=== PATIENT | male | born 2000 | race African-American/Black ===

== ENCOUNTER 2018-11-06 17:23 | Emergency (ER) | payer OTHER ==
[~2018-11-06] VITALS: Ht 170.2 cm; Wt 61.2 kg
[~2018-11-06 17:23] MED LIST: CHILDREN'S100 MG/58 PO; CHILDREN'S160 MG/56 ORAL; NKM; TAMIFLU75 MG ORAL
[2018-11-06] MEDS ORDERED: NKM (17:45)
[2018-11-06 17:50] VITALS: BP 121/69
--- NOTE | 2018-11-06 18:37 | Emergency Room Report ---
History of Present Illness General Chief Complaint: Chest Pain Source: Patient Present Illness HPI 18 YO Male presents to the emergency department complaining of 7 out of 10 severity left-sided chest pain that is burning in nature and states that he is having a symptoms primarily at nighttime. Patient also reports chronic cough x1 month with intermittent sputum production. Patient denies nausea, vomiting, fevers, chills, history of asthma, smoking or cardiac history. Patient denies history of acid reflux. Patient does report halitosis. Eyes palpitations, syncope, altered mental status or loss of consciousness. Reports intermittent numbness and tingling on the left side of his chest as well denies gross motor weakness or persistent paresthesias. Denies sudden onset of headache. Mother reports that pt. has had these symptoms in the past and was worked up for them. She states pt. develops anxiety when experiencing his symptoms. Allergies: Coded Allergies: No Known Allergies (Unverified , 04/04/13) Patient History Past Medical History: see triage record Past Surgical History: none Pertinent Family History: none Reviewed Nursing Documentation: PMH: Agreed; PSxH: Agreed Nursing Documentation-PMH Past Medical History: No Stated History Review of Systems All Other Systems: negative except mentioned in HPI Physical Exam Vital Signs Date Time Temp Pulse Resp B/P (MAP) Pulse Ox O2 Delivery O2 Flow Rate FiO2 11/06/18 17:42 98.2 83 16 121/69 (86) 97 Room Air Sp02 EP Interpretation: reviewed, normal General Appearance: no apparent distress, alert, GCS 15, non-toxic Head: normocephalic, atraumatic Eyes: bilateral eye normal inspection, bilateral eye PERRL ENT: hearing grossly normal, normal voice Neck: full range of motion Respiratory: chest non-tender, lungs clear, normal breath sounds, no respiratory distress, no accessory muscle use, no wheezing, speaking full sentences Cardiovascular #1: regular rate, rhythm, no edema Gastrointestinal: normal bowel sounds, non tender, soft, non-distended, no guarding Musculoskeletal: back normal, gait/station normal, normal range of motion, non- tender Neurologic: alert, oriented x3, responsive, motor strength/tone normal, sensory intact, speech normal, grossly normal Psychiatric: judgement/insight normal Skin: normal color, no rash, warm/dry, well hydrated Lymphatic: no adenopathy Medical Decision Making PA Attestation Dr. Abreu is my supervising Physician whom patient management has been discussed with. Diagnostic Impression: Primary Impression: Chronic cough Additional Impressions: GERD (gastroesophageal reflux disease) Qualified Codes: K21.9 - Gastro-esophageal reflux disease without esophagitis Chest pain due to GERD ER Course 18 YO Male presents to the emergency department complaining of 7 out of 10 severity left-sided chest pain that is burning in nature and states that he is having a symptoms primarily at nighttime. Patient also reports chronic cough x1 month with intermittent sputum production. Patient denies nausea, vomiting, fevers, chills, history of asthma, smoking or cardiac history. Patient denies history of acid reflux. Patient does report halitosis. Eyes palpitations, syncope, altered mental status or loss of consciousness. Reports intermittent numbness and tingling on the left side of his chest as well denies gross motor weakness or persistent paresthesias. Denies sudden onset of headache. Mother reports that pt. has had these symptoms in the past and was worked up for them. She states pt. develops anxiety when experiencing his symptoms. Ddx considered but are not limited to GERD, FL, pneumonia, contusion, costochondritis, PE, ACS, Shoulder strain, Chest wall contusion. aortic dissection. Vital signs: are WNL, pt. is afebrile H&PE are most consistent with Symptoms of acid reflex, no evidence of reactive airway. Very low suspicion for PE or FL. ORDERS: - EK BPM NSR CXR: unremarkable ED INTERVENTIONS: - Pepcid PO -I do not identify an emergent condition at this time. With current presentation , pt. is stable for close outpatient follow up and conservative treatment. D/ w pt. to return promptly to ED with worsening or new symptoms.- Pt. verbalizes' understanding and agreement with proposed treatment plan.proposed treatment plan. DISCHARGE: At this time pt. is stable for d/c to home. Will provide printed patient care instructions, and any necessary prescriptions. Care plan and follow up instructions have been discussed with the patient prior to discharge. EKG Diagnostic Results EP Interpretation: Dr. Abreu Rate: normal - 79 bpm Rhythm: NSR ST Segments: no acute changes ASA given to the pt in ED: No PA Scribe Text This Interpretation was scribed by JULIETTE Palomo. Chest X-Ray Diagnostic Results Chest X-Ray Diagnostic Results : Chest X-Ray Ordered: Yes # of Views/Limited/Complete: 1 View Indication: Chest Pain EP Interpretation: Yes PA Xray: Interpretation reviewed, by supervising MD, and agrees with findings. Interpretation: no consolidation, no effusion, no pneumothorax, no acute cardiopulmonary disease Impression: No acute disease Electronically Signed by: Fatou Palomo PA-C Last Vital Signs Date Time Temp Pulse Resp B/P (MAP) Pulse Ox O2 Delivery O2 Flow Rate FiO2 11/06/18 17:50 98.2 83 16 121/69 97 Room Air Status: improved Disposition: HOME, SELF-CARE Condition: Stable Scripts Omeprazole (OMEPRAZOLE) 20 Mg Capsule.dr 20 MG ORAL DAILY for 14 Days, #14 CAP Prov: Fatou Palomo 11/06/18 Ranitidine Hcl* (ZANTAC*) 150 Mg Tablet 150 MG ORAL TWICE A DAY for 10 Days, #20 TAB Prov: Fatou Palomo 11/06/18 Patient Instructions: Food Choices for Gastroesophageal Reflux Disease, Adult, [id number], Heartburn Additional Instructions: Take medications as directed. Follow up with a Primary Care Provider in 3-5 days, even if your symptoms have resolved. Return sooner to ED if new symptoms occur, or current symptoms become worse. - Please note that this Emergency Department Report was dictated using [employer] software, occasionally this can lead to erroneous entry secondary to interpretation by the dictation equipment. Fatou Palomo Nov 06, 2018 18:37
[2018-11-06] MEDS ORDERED: OMEPRAZOLE20 M2 ORAL (18:40)
[2018-11-06] MEDS ORDERED: ZANTAC150 MG ORAL (18:40)
[2018-11-06] MEDS: Lidocaine 2% Visc 15ml soln ORAL ONE (18:49)
[2018-11-06 19:10] VITALS: BP 121/69
--- NOTE | 2018-11-07 09:47 | Diagnostic Imaging Report ---
Indication: Chest pain Technique: One view of the chest Comparison: none Findings: Lungs and pleural spaces are clear. Heart size is normal Impression: No acute process
== END 2018-11-06 19:10 | disposition home or self-care (01) ==
LOC: EMR 18:03
DX: R05 Cough (principal); K21.9 Gastro-esophageal reflux disease without esophagitis
CPT/HCPCS: 71045; 99283